=== PATIENT | male | born 1960 | race Caucasian/White ===

== ENCOUNTER 2019-12-20 09:15 | Outpatient (CLI) | payer BC, SELFPAY ==
--- NOTE | ~2019-12-20 | MR_ITS ---
EXAMINATION: MR abdomen wo con INDICATION: Right kidney cancer TECHNIQUE: Coronal SSFSE ARC, WATER:coronal LAVA-FLEX, Coronal 2D FIESTA FatSat, Axial SSFSE BH ARC, Axial 3D DualEcho BH, Axial SSFSE-IR, Axial DWI b=500, Axial 2D FIESTA FatSat, pre and dynamic postco ntrast Axial LAVA ARC, postcontrast Coronal In and Opposed phase LAVA FLEX COMPARISON: None available CONTRAST: None FINDINGS: Cysts of the liver measure up to 2.3 cm. The spleen, pancreas, gallbladder, and adrenal gla nds are normal. There are two indeterminate lesions of the left kidney. One in the upper pole of the kidney measures 1.4 x 1.0 cm and demonstrates heterogeneous T1 signal intensity and low T2 signal int ensity. The second is a 1.6 x 1.5 cm lesion in the mid kidney which demonstrates heterogeneous and sl ightly hyperintense T1 signal intensity with corresponding areas of heterogeneous and slightly low T2 signal intensity. Cysts of the right kidney measure up to 1.3 cm. No definite suspicious right kidne y mass is identified. Evaluation is limited by the absence of intravenous contrast which was not admi nistered due to the patient's low GFR. There are no pathologically enlarged abdominal lymph nodes. No dilated loops of bowel are present. IMPRESSION: 1. Two indeterminate left kidney masses with MR features of solid neoplasms. No definite right kidney mass identified. Reviewed, dictated and finalized at location B.
[2019-12-20 10:10] LABS: Estimated Glomerular Filt Rate 31
== END 2019-12-20 09:16 | disposition home or self-care (01) ==
PROVIDERS: PCP Internal Medicine; Visit Provider Urology
DX: D41.01 Neoplasm of uncertain behavior of right kidney (principal)
CPT/HCPCS: 36415; 74181

== ENCOUNTER → 2020-06-22 08:36 | Outpatient (CLI) | payer BC, SELFPAY ==
--- NOTE | ~2020-06-22 | CT_ITS ---
EXAMINATION: CT abdomen pelvis wo con EXAM DATE: 06/22/2020 08:54 INDICATION: Left kidney neoplasm of uncertain behavior. TECHNIQUE: Spiral CT of the abdomen and pelvis was performed without contrast. Axial, coronal and s agittal images were reviewed. The dose-length product (DLP) for this examination was 983.32 mGy-cm. The exposure was tailored according to patient size (auto mA exposure control), and iterative recons truction (ASIR) was used as additional dose reduction technique. Correlation is made to MR abdomen . FINDINGS: The liver, spleen, adrenal glands and pancreas are unremarkable. Gallbladder is unremarkab le. No biliary obstruction. There is partially exophytic left renal midpole isodense mass measuring 1.5 cm as previously reported on MR abdomen 12/20/2019. The 2nd smaller left renal lesion in the uppe r pole left kidney also partially exophytic and isodense to the renal parenchyma measuring 1.2 x 1.4 cm. Can't evaluate enhancement characteristics on this noncontrast study, but both appear not signifi cantly changed in size compared to November. Other bilateral renal lesions were determined to be cysts o n that study. The prostate is unremarkable. The bladder is unremarkable. There is no retroperitonea l or pelvic lymphadenopathy. There is moderate to severe scattered arteriosclerotic disease. Possible identification of an unremarkable appendix. No pericecal inflammation. The stomach and smal l bowel are unremarkable. There is expected amount of colonic stool. No free intraperitoneal gas. The heart is normal in size. There are no pericardial or pleural effusions. The lung bases are un remarkable. There are no osteoblastic or osteolytic lesions identified. IMPRESSION: Left renal partially exophytic isodense lesions, could be solid masses, unchanged. Reviewed, dictated and finalized at location B. IMPRESSION: Left renal partially exophytic isodense lesions, could be solid mas ses, unchanged.
== END ==
PROVIDERS: PCP Internal Medicine; Visit Provider Urology
DX: N28.89 Other specified disorders of kidney and ureter (principal)
CPT/HCPCS: 74176

== ENCOUNTER → 2021-01-21 09:36 | Outpatient (CLI) | payer BC, SELFPAY ==
--- NOTE | ~2021-01-21 | CT_ITS ---
EXAMINATION: CT abdomen pelvis wo con EXAM DATE: 01/21/2021 09:57 INDICATION: Neoplasm of uncertain behavior of kidney. TECHNIQUE: Spiral CT of the abdomen and pelvis was performed without contrast. Axial, coronal and sag ittal images were reviewed. The dose-length product (DLP) for this examination was 987.01 mGy-cm. T he exposure was tailored according to patient size (auto mA exposure control), and iterative reconstr uction (ASIR) was used as additional dose reduction technique. Comparison is made to prior examinatio n from 06/22/2020. FINDINGS: Again there are bilateral renal cysts. There are 2 partially exophytic left renal mildly hy perdense regions which could be hemorrhagic cysts, both appears unchanged in size at 1.6 cm. Can't ex clude solid masses. There is no nephrolithiasis or hydronephrosis. The prostate is unremarkable. T he bladder is unremarkable. There are 2 liver cysts, largest medially at 2.4 cm. The liver, spleen, adrenal glands and pancreas a re otherwise unremarkable. Gallbladder is unremarkable. No biliary obstruction. There is no retrop eritoneal or pelvic lymphadenopathy. Moderate to severe amount of aortoiliac arterial sclerosis. Mild distal aortic and left common iliac ectasia. Left common iliac artery measures 1.8 cm. The appendix is normal. The stomach and small bowel are unremarkable. There is expected amount of c olonic stool. No free intraperitoneal gas. The heart is normal in size. There are no pericardial or pleural effusions. The lung bases are unremarkable. There are no osteoblastic or osteolytic les ions identified. IMPRESSION: 1. Stable renal lesions, could be cysts but not further characterized. Can't exclude solid mass. 2. Other chronic findings. Reviewed, dictated and finalized at location A. IMPRESSION: 1. Stable renal lesions, could be cysts but not further characterized. Can't ex clude solid mass. 2. Other chronic findings.
== END ==
PROVIDERS: PCP Internal Medicine; Visit Provider Urology
DX: D41.01 Neoplasm of uncertain behavior of right kidney (principal)
CPT/HCPCS: 74176